=== PATIENT | female | born 1970 | race Caucasian/White ===

== ENCOUNTER 2017-02-11 14:37 | Inpatient (IN) | payer OTHER ==
[2017-02-11 15:51] VITALS: BMI 22.6
--- NOTE | 2017-02-11 17:39 | HP ---
CIWA Score - CIWA Score Nausea/Vomitin Muscle Tremors: 4-Moderate,w/Arms Extend Anxiety: 4-Mod. Anxious/Guarded Agitation: 4-Moderately Restless Paroxysmal Sweats: 3 Orientation: 0-Oriented Tacttile Disturbances: 0-None Auditory Disturbances: 0-None Visual Disturbances: 0-None Headache: 0-None Present CIWA-Ar Total Score: 17 Admission ROS BHS - HPI Chief Complaint: Withdrawal sx. Allergies/Adverse Reactions: Allergies Allergy/AdvReac Type Severity Reaction Status Date / Time No Known Allergies Allergy Verified 02/11/17 17:39 History of Present Illness: 46 y/o woman with a long hx. of drug and alcohol dependence is admitted for detox. Pt. has been in previous detox, denies significant sobriety. Exam Limitations: No Limitations - Ebola screening Have you traveled outside of the country in the last 21 days: No Have you had contact with anyone from an Ebola affected area: No Have you been sick,other than usual withdrawal symptoms: No Do you have a fever: No - Review of Systems Constitutional: Diaphoresis EENT: reports: No Symptoms Reported Respiratory: reports: Cough, Shortness of Breath (copd), Wheezing (copd) Cardiac: reports: No Symptoms Reported GI: reports: Nausea, Abdominal cramping : reports: No Symptoms Reported Musculoskeletal: reports: Back Pain, Joint Pain Integumentary: reports: Sweating Neuro: reports: Seizure (5 yrs. ago alcohol related), Tremors Endocrine: reports: No Symptoms Reported Hematology: reports: No Symptoms Reported Psychiatric: reports: No Sypmtoms Reported Other Systems: Reviewed and Negative Patient History - Patient Medical History Hx Anemia: No Hx Asthma: No Hx Chronic Obstructive Pulmonary Disease (COPD): Yes Hx Cancer: No Hx Cardiac Disorders: No Hx Congestive Heart Failure: No Hx Hypertension: No Hx Hypercholesterolemia: No Hx Pacemaker: No HX Cerebrovascular Accident: No Hx Seizures: Yes (5 yrs. ago) Hx Dementia: No Hx Diabetes: No Hx Gastrointestinal Disorders: Yes Hx Liver Disease: No Hx Genitourinary Disorders: No Hx Sexually Transmitted Disorders: Yes (Syphillis, treated) Hx Renal Disease (ESRD): No Hx Thyroid Disease: No Hx Human Immunodeficiency Virus (HIV): No Hx Hepatitis C: Yes (treated with Harvoni) Hx Depression: Yes Hx Suicide Attempt: No Hx Bipolar Disorder: No Hx Schizophrenia: No - Patient Surgical History Past Surgical History: No - PPD History Previous Implant?: Yes Documented Results: Negative w/o proof PPD to be Administered?: Yes - Reproductive History Patient is a Female of Child Bearing Age (11 -55 yrs old): Yes LMP comment: None since 2014 Patient : No - Smoking Cessation Smoking history: Current every day smoker Aproximately how many cigarettes per day: 20 Hx Chewing Tobacco Use: No Initiated information on smoking cessation: Yes 'Breaking Loose' booklet given: 02/11/17 - Substance & Tx. History Hx Alcohol Use: Yes Hx Substance Use: Yes Substance Use Type: Alcohol, Cocaine, Heroin Hx Substance Use Treatment: Yes (OTP) - Substances Abused Alcohol Route: Oral Frequency: Daily Amount used: Beer 1(6pack) Age of first use: 14 Date of Last Use: 02/11/17 Alprazolam (Xanax) Route: Oral Frequency: Daily Amount used: 6mg Age of first use: 32 Date of Last Use: 02/10/17 Crack Route: Smoking Frequency: Daily Amount used: $100.00 Age of first use: 18 Date of Last Use: 02/10/17 Family Disease History - Family Disease History Family Disease History: Diabetes: Grandparent, Heart Disease: Mother (HTN), Sister (HTN,Alcohol), Other: Father (Cocaine) Admission Physical Exam S - Vital Signs Vital Signs: Vital Signs - 24 hr 02/11/17 02/11/17 15:48 17:30 Temperature 96.1 F L 98.2 F Pulse Rate 78 63 Respiratory 20 18 Rate Blood Pressure 109/68 124/64 - Physical General Appearance: Yes: Tremorous, Irritable, Sweating, Anxious HEENTM: Yes: Within Normal Limits Respiratory: Yes: Chest Non-Tender, Wheezing (mild) Neck: Yes: Supple Breast: Yes: Breast Exam Deferred Cardiology: Yes: Regular Rhythm, Regular Rate, S1, S2 Abdominal: Yes: Normal Bowel Sounds, Non Tender, Soft Genitourinary: Yes: Within Normal Limits Back: Yes: Within Normal Limits Musculoskeletal: Yes: Within Normal Limits Extremities: Yes: Tremors Neurological: Yes: Fully Oriented, Alert Integumentary: Yes: Diaphoresis Lymphatic: Yes: Within Normal Limits - Diagnostic (1) Cocaine dependence, uncomplicated Current Visit: Yes Status: Acute (2) Opioid dependence on agonist therapy Current Visit: Yes Status: Acute (3) Sedative, hypnotic or anxiolytic dependence with withdrawal, uncomplicated Current Visit: Yes Status: Acute Cleared for Admission [facility] - Detox or Rehab [facility] Level of Care: Medically Managed Detox Regimen/Protocol: Librium [facility] Breath Alcohol Content Breath Alcohol Content: 0 Urine Pregancy Test - Result Urine Test Results: Positive - Line Present Urine Drug Screen - Results Drug Screen Negative: No Urine Drug Screen Results: HUMZA-Cocaine, OPI-Opiates, BZO-Benzodiazepines, MTD- Methadone, TCA-Tricyclic Antidepress
[2017-02-11] MEDS ORDERED: guaiFENesin/D-METHORPHAN HB 10 ML UNIT-DOSE CUPS PO PRN (17:51)
[2017-02-11] MEDS ORDERED: MAGNESIUM HYDROX 2400MG/30ML ORAL SUSPENSION 30 ML CUP PO PRN (17:51)
[2017-02-11] MEDS ORDERED: IBUPROFEN 400 MG TABLET (FP) PO PRN (17:51)
[2017-02-11] MEDS ORDERED: hydrOXYzine PAMOATE 50 MG CAPSULE (FP) PO PRN (17:51)
[2017-02-11] MEDS ORDERED: MAG HYDROX/AL HYDROX/SIMETH 30 ML UNIT-DOSE CUP PO PRN (17:51)
[2017-02-11] MEDS ORDERED: MAGNESIUM CITRATE 300 ML BOTTLE PO PRN (17:51)
[2017-02-11] MEDS ORDERED: chlordiazePOXIDE HCL 25 MG CAPSULE PO ONE (17:51)
[2017-02-11] MEDS ORDERED: P-EPHED 60MG/TRIPROLIDI 2.5MG TABLET PO PRN (17:51)
[2017-02-11] MEDS ORDERED: chlordiazePOXIDE HCL 25 MG CAPSULE PO PRN (17:51)
[2017-02-11] MEDS ORDERED: LOPERAMIDE HCL 2 MG CAPSULE PO PRN (17:51)
[2017-02-11] MEDS ORDERED: MENTHOL/PHENOL 1 EACH UD MM PRN (17:51)
[2017-02-11] MEDS ORDERED: ACETAMINOPHEN 325 MG TABLET (FP) PO PRN (17:51)
[2017-02-11] MEDS ORDERED: ALBUTEROL SO4 2.5/IPRATROPIUM 0.5 INH SOL 3 ML VIAL.NEB. NEB PRN (17:55)
[2017-02-11 20:18] LABS: URINE APPEARANCE CLOUDY; URINE BILIRUBIN NEGATIVE (NEGATIVE); URINE BLOOD NEGATIVE (NEGATIVE); URINE COLOR DKYELLOW; URINE GLUCOSE (UA) NEGATIVE (NEGATIVE); URINE KETONE NEGATIVE (NEGATIVE); URINE NITRITE NEGATIVE (NEGATIVE); URINE PROTEIN NEGATIVE (NEGATIVE); URINE UROBILINOGEN NEGATIVE mg/dL (0.2-1.0)
[2017-02-11] MEDS ORDERED: chlordiazePOXIDE HCL 25 MG CAPSULE ONE (20:42)
[2017-02-11] MEDS: BACITRACIN 0.9 GM PACKET TP SCH ×2 (20:44→22:49)
[2017-02-11] MEDS: ALBUTEROL SO4 2.5/IPRATROPIUM 0.5 INH SOL 3 ML VIAL.NEB. NEB SCH ×2 (20:47→23:00)
[2017-02-11] MEDS: NICOTINE POLACRILEX 2 MG GUM BC PRN ×2 (20:49→22:53)
[2017-02-11] MEDS: NICOTINE 21 MG/24 HOURS TOPICAL PATCH TD SCH (20:49)
[2017-02-11 22:21] LABS: URINE LEUK ESTERASE Negative (NEGATIVE)
[2017-02-11] MEDS: diphenhydrAMINE HCL 50 MG CAPSULE PO PRN (22:49)
[2017-02-11] MEDS: chlordiazePOXIDE HCL 25 MG CAPSULE PO SCH (22:49)
[2017-02-11] MEDS: THIAMINE HCL 100 MG TABLET (FP) PO SCH (23:00)
[2017-02-12] MEDS: chlordiazePOXIDE HCL 25 MG CAPSULE PO SCH ×4 (08:35→22:05)
[2017-02-12] MEDS: ALBUTEROL SO4 2.5/IPRATROPIUM 0.5 INH SOL 3 ML VIAL.NEB. NEB SCH ×4 (08:35→23:23)
[2017-02-12] MEDS: METHADONE HCL 10 MG TABLET PO SCH (09:12)
[2017-02-12] MEDS: NICOTINE POLACRILEX 2 MG GUM BC PRN ×4 (09:21→22:09)
[2017-02-12 10:25] LABS: MCH 28.9 pg (25.7-33.7); MCHC 33.2 g/dl (32.0-36.0); MEAN CELL VOLUME 86.9 fl (80-96); MEAN PLT VOLUME 8.7 fl (7.5-11.1); PLATELET COUNT 282 K/MM3 (134-434); RDW 13.8 % (11.6-15.6); WHITE BLOOD COUNT 6.2 K/mm3 (4.0-10.0)
[2017-02-12] MEDS: BACITRACIN 0.9 GM PACKET TP SCH ×4 (10:29→22:04)
[2017-02-12] MEDS: NICOTINE 21 MG/24 HOURS TOPICAL PATCH TD SCH (10:29)
[2017-02-12] MEDS: PRENATAL VITAMINS W/ FOLIC ACID TABLET (FP) PO SCH (10:29)
[2017-02-12 10:44] LABS: ALBUMIN 2.7 g/dl (3.4-5.0); ALK PHOS 76 U/L (45-117); ANION GAP 8 (8-16); BILIRUBIN,TOTAL 0.3 mg/dL (0.2-1.0); CALCIUM 8.8 mg/dL (8.5-10.1); CO2 28 mmol/L (21-32); CREATININE 0.5 mg/dL (0.55-1.02); GLUCOSE,RANDOM 81 mg/dL (74-106); SGOT/AST 14 U/L (15-37); SGPT/ALT 16 U/L (12-78); TOT PROT 6.7 g/dl (6.4-8.2)
[2017-02-12 10:59] LABS: HIV 1 & 2 AB NEGATIVE; HIV 1 AGp24 NEGATIVE
--- NOTE | 2017-02-12 11:44 | PN ---
S CIWA - CIWA Score Nausea/Vomitin Muscle Tremors: 3 Anxiety: 3 Agitation: 3 Paroxysmal Sweats: 1-Minimal Palms Moist Orientation: 0-Oriented Tacttile Disturbances: 1-Very Mild Itch/Numbness Auditory Disturbances: 1-Very Mild Visual Disturbances: 0-None Headache: 2-Mild CIWA-Ar Total Score: 17 BHS Progress Note (SOAP) Subjective: ALERT,IRRITABLE,ANXIOUS,INTERRUPTED SLEEP,TREMOR, Objective: 02/12/17 11:42 Vital Signs Temperature 97.2 F L 02/12/17 09:54 Pulse Rate 70 02/12/17 09:54 Respiratory Rate 18 02/12/17 09:54 Blood Pressure 131/65 02/12/17 09:54 O2 Sat by Pulse Oximetry (%) EKG SINUS BRADYCARDIA 59/MIN NO CHEST PAIN,NO SOB,NO DIZZINESS 02/12/17 11:43 Laboratory Last Values WBC 6.2 K/mm3 (4.0-10.0) 02/12/17 07:40 RBC 3.96 M/mm3 (3.60-5.2) 02/12/17 07:40 Hgb 11.4 GM/dL (10.7-15.3) 02/12/17 07:40 Hct 34.4 % (32.4-45.2) 02/12/17 07:40 MCV 86.9 fl (80-96) 02/12/17 07:40 MCH 28.9 pg (25.7-33.7) 02/12/17 07:40 MCHC 33.2 g/dl (32.0-36.0) 02/12/17 07:40 RDW 13.8 % (11.6-15.6) 02/12/17 07:40 Plt Count 282 K/MM3 (134-434) 02/12/17 07:40 MPV 8.7 fl (7.5-11.1) 02/12/17 07:40 Sodium 142 mmol/L (136-145) 02/12/17 07:40 Potassium 4.2 mmol/L (3.5-5.1) 02/12/17 07:40 Chloride 106 mmol/L (98-107) 02/12/17 07:40 Carbon Dioxide 28 mmol/L (21-32) 02/12/17 07:40 Anion Gap 8 (8-16) 02/12/17 07:40 BUN 11 mg/dL (7-18) 02/12/17 07:40 Creatinine 0.5 mg/dL (0.55-1.02) L 02/12/17 07:40 Creat Clearance w eGFR > 60 (>60) 02/12/17 07:40 Random Glucose 81 mg/dL (74-106) 02/12/17 07:40 Calcium 8.8 mg/dL (8.5-10.1) 02/12/17 07:40 Total Bilirubin 0.3 mg/dL (0.2-1.0) 02/12/17 07:40 AST 14 U/L (15-37) L 02/12/17 07:40 ALT 16 U/L (12-78) 02/12/17 07:40 Alkaline Phosphatase 76 U/L (45-117) 02/12/17 07:40 Total Protein 6.7 g/dl (6.4-8.2) 02/12/17 07:40 Albumin 2.7 g/dl (3.4-5.0) L 02/12/17 07:40 Urine Color Dkyellow 02/11/17 19:00 Urine Appearance Cloudy 02/11/17 19:00 Urine pH 5.0 (5.0-8.0) 02/11/17 19:00 Ur Specific [place] >= 1.030 (1.005-1.025) H 02/11/17 19:00 Urine Protein Negative (NEGATIVE) 02/11/17 19:00 Urine Glucose (UA) Negative (NEGATIVE) 02/11/17 19:00 Urine Ketones Negative (NEGATIVE) 02/11/17 19:00 Urine Blood Negative (NEGATIVE) 02/11/17 19:00 Urine Nitrite Negative (NEGATIVE) 02/11/17 19:00 Urine Bilirubin Negative (NEGATIVE) 02/11/17 19:00 Urine Urobilinogen Negative mg/dL (0.2-1.0) 02/11/17 19:00 Ur Leukocyte Esterase Negative (NEGATIVE) 02/11/17 19:00 RPR Titer Nonreactive (NONREACTIVE) 02/12/17 07:40 HIV 1&2 Antibody Screen Negative 02/12/17 07:40 HIV P24 Antigen Negative 02/12/17 07:40 Assessment: 02/12/17 11:44 WITHDRAWAL SYMPTOM Plan: CONTINUE DETOX
[2017-02-12] MEDS ORDERED: PNEUMOCOCCAL 23 VACCINE 0.5 ML VIAL IM ONE (12:00)
[2017-02-12] MEDS ORDERED: PNEUMOC 13-VAL CONJ-DIP CRM/PF 0.5 ML DISP.SYRIN IM ONE (12:00)
--- NOTE | 2017-02-12 15:12 | PN ---
BHS Progress Note Note: Patient did not want to be seen
--- NOTE | 2017-02-12 16:31 | EKG ---
Test Reason : Blood Pressure : / mmHG Vent. Rate : 054 BPM Atrial Rate : 054 BPM P-R Int : 156 ms QRS Dur : 082 ms QT Int : 426 ms P-R-T Axes : 062 049 033 degrees QTc Int : 403 ms SINUS BRADYCARDIA OTHERWISE NORMAL ECG NO PREVIOUS ECGS AVAILABLE Confirmed by SHERITA CLARK MD ([id number]) on 02/12/2017 4:31:16 PM Referred By: Confirmed By:SHERITA CLARK MD
[2017-02-12] MEDS: THIAMINE HCL 100 MG TABLET (FP) PO SCH (22:04)
[2017-02-13] MEDS: chlordiazePOXIDE HCL 25 MG CAPSULE PO SCH ×3 (05:37→17:58)
[2017-02-13] MEDS: METHADONE HCL 10 MG TABLET PO SCH (05:38)
[2017-02-13] MEDS: NICOTINE POLACRILEX 2 MG GUM BC PRN ×4 (05:42→22:09)
[2017-02-13] MEDS: ALBUTEROL SO4 2.5/IPRATROPIUM 0.5 INH SOL 3 ML VIAL.NEB. NEB SCH ×2 (06:45→12:30)
[2017-02-13] MEDS ORDERED: METHADONE HCL 40 MG DISPERSABLE TABLET PO SCH (09:15)
[2017-02-13] MEDS: PRENATAL VITAMINS W/ FOLIC ACID TABLET (FP) PO SCH (10:28)
[2017-02-13] MEDS: BACITRACIN 0.9 GM PACKET TP SCH ×4 (10:29→22:06)
[2017-02-13] MEDS: NICOTINE 21 MG/24 HOURS TOPICAL PATCH TD SCH (10:29)
--- NOTE | 2017-02-13 11:04 | PN ---
S CIWA - CIWA Score Nausea/Vomitin Muscle Tremors: 3 Anxiety: 3 Agitation: 3 Paroxysmal Sweats: 1-Minimal Palms Moist Orientation: 0-Oriented Tacttile Disturbances: 1-Very Mild Itch/Numbness Auditory Disturbances: 1-Very Mild Visual Disturbances: 0-None Headache: 2-Mild CIWA-Ar Total Score: 17 BHS Progress Note (SOAP) Subjective: ALERT,IRRITABLE,ANXIOUS,INTERRUPTED SLEEP,PAIN IN THE BODY AND BACK,MULTIPLE ULCERS BOTH FOREARMS WITH CELLULITIS Objective: 02/13/17 11:02 Vital Signs Temperature 98.2 F 02/13/17 09:42 Pulse Rate 62 02/13/17 09:42 Respiratory Rate 18 02/13/17 09:42 Blood Pressure 112/65 02/13/17 09:42 O2 Sat by Pulse Oximetry (%) Laboratory Last Values WBC 6.2 K/mm3 (4.0-10.0) 02/12/17 07:40 RBC 3.96 M/mm3 (3.60-5.2) 02/12/17 07:40 Hgb 11.4 GM/dL (10.7-15.3) 02/12/17 07:40 Hct 34.4 % (32.4-45.2) 02/12/17 07:40 MCV 86.9 fl (80-96) 02/12/17 07:40 MCH 28.9 pg (25.7-33.7) 02/12/17 07:40 MCHC 33.2 g/dl (32.0-36.0) 02/12/17 07:40 RDW 13.8 % (11.6-15.6) 02/12/17 07:40 Plt Count 282 K/MM3 (134-434) 02/12/17 07:40 MPV 8.7 fl (7.5-11.1) 02/12/17 07:40 Sodium 142 mmol/L (136-145) 02/12/17 07:40 Potassium 4.2 mmol/L (3.5-5.1) 02/12/17 07:40 Chloride 106 mmol/L (98-107) 02/12/17 07:40 Carbon Dioxide 28 mmol/L (21-32) 02/12/17 07:40 Anion Gap 8 (8-16) 02/12/17 07:40 BUN 11 mg/dL (7-18) 02/12/17 07:40 Creatinine 0.5 mg/dL (0.55-1.02) L 02/12/17 07:40 Creat Clearance w eGFR > 60 (>60) 02/12/17 07:40 Random Glucose 81 mg/dL (74-106) 02/12/17 07:40 Calcium 8.8 mg/dL (8.5-10.1) 02/12/17 07:40 Total Bilirubin 0.3 mg/dL (0.2-1.0) 02/12/17 07:40 AST 14 U/L (15-37) L 02/12/17 07:40 ALT 16 U/L (12-78) 02/12/17 07:40 Alkaline Phosphatase 76 U/L (45-117) 02/12/17 07:40 Total Protein 6.7 g/dl (6.4-8.2) 02/12/17 07:40 Albumin 2.7 g/dl (3.4-5.0) L 02/12/17 07:40 Urine Color Dkyellow 02/11/17 19:00 Urine Appearance Cloudy 02/11/17 19:00 Urine pH 5.0 (5.0-8.0) 02/11/17 19:00 Ur Specific [place] >= 1.030 (1.005-1.025) H 02/11/17 19:00 Urine Protein Negative (NEGATIVE) 02/11/17 19:00 Urine Glucose (UA) Negative (NEGATIVE) 02/11/17 19:00 Urine Ketones Negative (NEGATIVE) 02/11/17 19:00 Urine Blood Negative (NEGATIVE) 02/11/17 19:00 Urine Nitrite Negative (NEGATIVE) 02/11/17 19:00 Urine Bilirubin Negative (NEGATIVE) 02/11/17 19:00 Urine Urobilinogen Negative mg/dL (0.2-1.0) 02/11/17 19:00 Ur Leukocyte Esterase Negative (NEGATIVE) 02/11/17 19:00 RPR Titer Nonreactive (NONREACTIVE) 02/12/17 07:40 HIV 1&2 Antibody Screen Negative 02/12/17 07:40 HIV P24 Antigen Negative 02/12/17 07:40 Assessment: 02/13/17 11:03 WITHDRAWAL SYMPTOM Plan: CONTINUE DETOX,CLINDYMYCIN 300 MGS PO TID,SILVADENE CREAM
[2017-02-13] MEDS: SILVER SULFADIAZINE 1% TOP CREAM 50 GM JAR TP SCH ×2 (12:31→22:09)
--- NOTE | 2017-02-13 13:57 | CONSULT ---
[facility] Psychiatric Consult - Data Date of interview: 02/13/17 Admission source: [facility] Identifying data: First admission to [facility] for this 46 y/o female seeking detox treatment on for heroin,cocaine,alcohol and xanax dependence.Patient is single without children,domiciled (lives with her mother), unemployed and currently supported on unemployment benefits. Substance Abuse History: Discussed in this interview.Patient confirmed this report. Smoking Cessation. Smoking history: Current every day smoker. Aproximately how many cigarettes per day: 20. Hx Chewing Tobacco Use: No. Initiated information on smoking cessation: Yes. 'Breaking Loose' booklet given : 02/11/17. - Substance & Tx. History. Hx Alcohol Use: Yes. Hx Substance Use : Yes. Substance Use Type: Alcohol, Cocaine, Heroin. Hx Substance Use Treatment: Yes (OTP). - Substances Abused. Alcohol. Route: Oral. Frequency: Daily. Amount used: Beer 1(6pack). Age of first use: 14. Date of Last Use: 02/11/17. Alprazolam (Xanax). Route: Oral. Frequency: Daily. Amount used: 6mg. Age of first use: 32. Date of Last Use: 02/10/17. Crack. Route: Smoking. Frequency: Daily. Amount used: $100.00. Age of first use: 18. Date of Last Use: 02/10/17 Medical History: History of seizures (withdrawal-related),hepatitis C (treated), past treatment for syphilis and skin lesions (needle tracks). Psychiatric History: No reported history of psychiatric hospitalizations.Patient endorses Anxiety Disorder.Brief OPD care months ago.Was prescribed neurontin by a primary care practitioner.Ms Sheriff shows no motivation for treatment of lifestyle changes.Denies history of suicide attempts. Physical/Sexual Abuse/Trauma History: Patient denies history of abuse. Additional Comment: Urine Drug Screen Results: HUMZA-Cocaine, OPI-Opiates, BZO- Benzodiazepines, MTD-Methadone, TCA-Tricyclic Antidepressant.Noted. Mental Status Exam - Mental Status Exam Alert and Oriented to: Time, Place, Person Cognitive Function: Good Patient Appearance: Unkempt, Disheveled (arms and forearms covered with excoriations,healed abcesses and needle swanson) Mood: Nervous, Withdrawn Affect: Mood Congruent Patient Behavior: Fatigued, Appropriate, Cooperative Speech Pattern: Clear, Appropriate Voice Loudness: Normal Thought Process: Intact, Goal Oriented Thought Disorder: Not Present Hallucinations: Denies Suicidal Ideation: Denies Homicidal Ideation: Denies Insight/Judgement: Poor Sleep: Well Appetite: Good Muscle strength/Tone: Normal Gait/Station: Normal Psychiatric Findings - Problem List ([place] 1, 2,3) (1) Alcohol dependence Current Visit: Yes Status: Acute (2) Sedative, hypnotic or anxiolytic dependence with withdrawal, uncomplicated Current Visit: Yes Status: Acute (3) Cocaine dependence, uncomplicated Current Visit: Yes Status: Acute (4) Opioid dependence on agonist therapy Current Visit: Yes Status: Acute (5) Nicotine dependence Current Visit: Yes Status: Acute (6) Substance induced mood disorder Current Visit: Yes Status: Acute - Initial Treatment Plan Initial Treatment Plan: Psychoeducation.Detoxification.Patient declines any psychotropics other than medications for detoxification purposes.Observation.
[2017-02-13] MEDS: CLINDAMYCIN HCL 150 MG CAPSULE (FP) PO SCH ×2 (14:31→22:06)
[2017-02-13] MEDS: chlordiazePOXIDE 5 MG CAPSULE PO SCH (22:06)
[2017-02-13] MEDS: THIAMINE HCL 100 MG TABLET (FP) PO SCH (22:06)
[2017-02-14] MEDS: ALBUTEROL SO4 2.5/IPRATROPIUM 0.5 INH SOL 3 ML VIAL.NEB. NEB SCH ×3 (00:30→13:00)
[2017-02-14] MEDS: NICOTINE POLACRILEX 2 MG GUM BC PRN ×5 (02:24→22:14)
[2017-02-14] MEDS: chlordiazePOXIDE 5 MG CAPSULE PO SCH ×3 (05:04→17:54)
[2017-02-14] MEDS: METHADONE HCL 40 MG DISPERSABLE TABLET PO SCH (05:04)
[2017-02-14] MEDS: CLINDAMYCIN HCL 150 MG CAPSULE (FP) PO SCH ×3 (05:05→22:02)
--- NOTE | 2017-02-14 09:46 | PN ---
BHS Progress Note (SOAP) Subjective: ALERT,IRRITABLE,ANXIOUS,INTERRUPTED SLEEP Objective: 02/14/17 09:44 Vital Signs Temperature 97.7 F 02/14/17 06:09 Pulse Rate 66 02/14/17 06:09 Respiratory Rate 18 02/14/17 06:09 Blood Pressure 147/74 02/14/17 06:09 O2 Sat by Pulse Oximetry (%) 02/14/17 09:45 Assessment: 02/14/17 09:45 WITHDRAWAL SYMPTOM Plan: CONTINUE DETOX,DISCHARGE IN AM
[2017-02-14] MEDS: BACITRACIN 0.9 GM PACKET TP SCH ×4 (10:09→22:02)
[2017-02-14] MEDS: PRENATAL VITAMINS W/ FOLIC ACID TABLET (FP) PO SCH (10:09)
[2017-02-14] MEDS: SILVER SULFADIAZINE 1% TOP CREAM 50 GM JAR TP SCH ×2 (10:10→22:10)
[2017-02-14] MEDS: NICOTINE 21 MG/24 HOURS TOPICAL PATCH TD SCH (10:10)
[2017-02-14] MEDS: chlordiazePOXIDE HCL 10 MG CAPSULE PO SCH (22:02)
[2017-02-14] MEDS: THIAMINE HCL 100 MG TABLET (FP) PO SCH (22:03)
[2017-02-14] MEDS: diphenhydrAMINE HCL 50 MG CAPSULE PO PRN (22:10)
[2017-02-15] MEDS: METHADONE HCL 40 MG DISPERSABLE TABLET PO SCH (05:11)
[2017-02-15] MEDS: chlordiazePOXIDE HCL 10 MG CAPSULE PO SCH (05:11)
[2017-02-15] MEDS: CLINDAMYCIN HCL 150 MG CAPSULE (FP) PO SCH (05:11)
[2017-02-15] MEDS: NICOTINE POLACRILEX 2 MG GUM BC PRN ×2 (05:14→09:36)
--- NOTE | 2017-02-15 08:23 | DS ---
[facility] Detox Discharge Summary Admission Date: 02/11/17 Discharge Date: 02/15/17 - History Present History: Cocaine Dependence, Sedative Dependence, MMTP Additional Comments: follow up with after care program as arrangement Pertinent Past History: nicotine dependence mmtp - Physical Exam Results Vital Signs: Vital Signs Temperature 96.8 F L 02/15/17 06:17 Pulse Rate 58 L 02/15/17 06:17 Respiratory Rate 16 02/15/17 06:17 Blood Pressure 98/63 02/15/17 06:17 O2 Sat by Pulse Oximetry (%) Pertinent Admission Physical Exam Findings: withdrawal symptom - Treatment Hospital Course: Detox Protocol Followed, Detoxed Safely, Responded well, Discharged Condition Good Patient has Accepted a Rehab Referral to: declined - Medication Discharge Medications: Ambulatory Orders Gabapentin [Neurontin -] 300 mg PO Q8H 02/11/17 - Diagnosis (1) Sedative, hypnotic or anxiolytic dependence with withdrawal, uncomplicated Current Visit: Yes Status: Acute (2) Cocaine dependence, uncomplicated Current Visit: Yes Status: Acute (3) Nicotine dependence Current Visit: Yes Status: Acute (4) Opioid dependence on agonist therapy Current Visit: Yes Status: Acute (5) Substance induced mood disorder Current Visit: Yes Status: Acute - AMA Did Patient Leave Against Medical Advice: No
[2017-02-15 10:45] VITALS: BP 134/90; PULSE 109; TEMP 97.7
== END 2017-02-15 10:00 | disposition home or self-care (01) | DRG 773 ==
LOC: YASAS 14:37 → Y6N 16:55
PROVIDERS: ADMIT Internal Medicine; ATTEND Internal Medicine
PROC: HZ2ZZZZ Detoxification Services for Substance Abuse Treatment (ICD-10-PCS; principal; 2017-02-11)
DX: F10.230 Alcohol dependence with withdrawal, uncomplicated (principal); F11.20 Opioid dependence, uncomplicated; F13.230 Sedative, hypnotic or anxiolytic dependence with withdrawal, uncomplicated; F14.20 Cocaine dependence, uncomplicated; F17.210 Nicotine dependence, cigarettes, uncomplicated; F19.24 Other psychoactive substance dependence with psychoactive substance-induced mood disorder; R00.1 Bradycardia, unspecified; J44.9 Chronic obstructive pulmonary disease, unspecified; B18.2 Chronic viral hepatitis C; Z86.69 Personal history of other diseases of the nervous system and sense organs; Z87.42 Personal history of other diseases of the female genital tract
CPT/HCPCS: 36415; 80053; 81003; 85027; 86593; 87389; 93005; 93010; 94640

== ENCOUNTER 2018-03-01 10:56 | Inpatient (IN) | payer OTHER ==
[2018-03-01 12:21] VITALS: BMI 19.5
--- NOTE | 2018-03-01 12:46 | HP ---
Admission [facility] Allergies/Adverse Reactions: Allergies Allergy/AdvReac Type Severity Reaction Status Date / Time No Known Allergies Allergy Verified 03/01/18 13:45 - Ebola screening Have you traveled outside of the country in the last 21 days: No Have you had contact with anyone from an Ebola affected area: No Have you been sick,other than usual withdrawal symptoms: No Patient History - Patient Medical History Hx Anemia: No Hx Asthma: No Hx Chronic Obstructive Pulmonary Disease (COPD): Yes Hx Cancer: No Hx Cardiac Disorders: No Hx Congestive Heart Failure: No Hx Hypertension: No Hx Hypercholesterolemia: No Hx Pacemaker: No HX Cerebrovascular Accident: No Hx Seizures: Yes (Drug-related 5 yrs ago) Hx Dementia: No Hx Diabetes: No Hx Gastrointestinal Disorders: No Hx Liver Disease: No Hx Genitourinary Disorders: No Hx Sexually Transmitted Disorders: Yes (Syphilis- treatd) Hx Renal Disease (ESRD): No Hx Thyroid Disease: No Hx Human Immunodeficiency Virus (HIV): No Hx Hepatitis C: Yes (treated with Harvoni) Hx Depression: Yes Hx Suicide Attempt: No Hx Bipolar Disorder: No Hx Schizophrenia: No - Patient Surgical History Past Surgical History: No Hx Neurologic Surgery: No Hx Cataract Extraction: No Hx Cardiac Surgery: No Hx Lung Surgery: No Hx Breast Surgery: No Hx Breast Biopsy: No Hx Abdominal Surgery: No Hx Appendectomy: No Hx Cholecystectomy: No Hx Genitourinary Surgery: No Hx Section: No Hx Orthopedic Surgery: No Anesthesia Reaction: No - PPD History Date: 02/13/17 - Smoking Cessation Smoking history: Current every day smoker Aproximately how many cigarettes per day: 20 Hx Chewing Tobacco Use: No Initiated information on smoking cessation: Yes 'Breaking Loose' booklet given: 03/01/18 - Substances Abused Heroin Route: Injection Frequency: Daily Amount used: 1-2 BUNDLE Age of first use: 27 Date of Last Use: 03/01/18 Alprazolam (Xanax) Route: Oral Frequency: Daily Amount used: 3/2MG Age of first use: 34 Date of Last Use: 03/01/18 Cocaine Route: Smoking Frequency: Daily Amount used: $50 Age of first use: 19 Date of Last Use: 03/01/18 Alcohol Route: Oral Frequency: Daily Amount used: 1 x six pack beer + 1 pint liquor Age of first use: 15 Date of Last Use: 03/01/18 Family Disease History - Family Disease History Family Disease History: Diabetes: Grandparent, Heart Disease: Mother (HTN), Sister (HTN,Alcohol), Other: Father (Cocaine) Admission Physical Exam [facility] - Vital Signs Vital Signs: Vital Signs - 24 hr 03/01/18 12:11 Temperature 99.3 F Pulse Rate 89 Respiratory 17 Rate Blood Pressure 114/67 Screened but not Admitted - Documentation of Visit Screened but not Admitted: Yes Level of Care Recommended at this Time: ER Evaluation/Care Additional Information/Explanation: this 47 yars old female with heorin,xanax, cociane dependence,. seen in [facility] evaluation unit ,history of trauma to right orbit 2 days ago,. unable to open right eye,ecchymsis of right eye,r/o fx floor of orbit right. bp 114/67,p89,r17,t99.3,stephanie is 0.00. patient to be evaluated at [facility] er and medical clearance,. endorsed to Lala Scanlon RN in charge of er who will endorse case to Dr.Joel Nicole. patient to be transported by [facility] Breath Alcohol Content Breath Alcohol Content: 0 Urine Pregancy Test - Result Urine Test Results: Negative- NO Line Present Urine Drug Screen - Results Drug Screen Negative: No Urine Drug Screen Results: THC-Marijuana, HUMZA-Cocaine, OPI-Opiates, BZO- Benzodiazepines, OXY-Oxycodone, FEN-Fentanyl
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
[2018-03-01] MEDS ORDERED: chlordiazePOXIDE HCL 25 MG CAPSULE PO ONE (19:50)
[2018-03-01] MEDS ORDERED: MAG HYDROX/AL HYDROX/SIMETH 30 ML UNIT-DOSE CUP PO PRN (19:50)
[2018-03-01] MEDS ORDERED: MAGNESIUM CITRATE 300 ML BOTTLE PO PRN (19:50)
[2018-03-01] MEDS ORDERED: LOPERAMIDE HCL 2 MG CAPSULE PO PRN (19:50)
[2018-03-01] MEDS ORDERED: METHADONE HCL 10 MG TABLET (FOR DETOX USE ONLY) PO ONE ×2 (19:50→23:00)
[2018-03-01] MEDS ORDERED: ACETAMINOPHEN 325 MG TABLET (FP) PO PRN (19:50)
[2018-03-01] MEDS ORDERED: MENTHOL/PHENOL 1 EACH UD MM PRN (19:50)
[2018-03-01] MEDS ORDERED: P-EPHED 60MG/TRIPROLIDI 2.5MG TABLET PO PRN (19:50)
[2018-03-01] MEDS ORDERED: guaiFENesin/D-METHORPHAN HB 10 ML UNIT-DOSE CUPS PO PRN (19:50)
[2018-03-01] MEDS ORDERED: IBUPROFEN 400 MG TABLET (FP) PO PRN (19:50)
[2018-03-01] MEDS ORDERED: MAGNESIUM HYDROX 2400MG/30ML ORAL SUSPENSION 30 ML CUP PO PRN (19:50)
[2018-03-01] MEDS: THIAMINE HCL 100 MG TABLET (FP) PO SCH (21:42)
[2018-03-01] MEDS: AMOX TR/POT CLAV 875MG/125MG TABLETS (FP) PO SCH (21:42)
[2018-03-01] MEDS: NICOTINE POLACRILEX 4 MG GUM BC PRN (21:49)
[2018-03-01] MEDS ORDERED: MELATONIN 5 MG TABLETS PO PRN (22:00)
[2018-03-01] MEDS: chlordiazePOXIDE HCL 25 MG CAPSULE PO SCH (22:02)
[2018-03-01 23:15] LABS: URINE APPEARANCE SLCLOUDY; URINE BILIRUBIN NEGATIVE (<2.0 mg/dL); URINE COLOR YELLOW; URINE GLUCOSE (UA) NEGATIVE (NEGATIVE); URINE KETONE NEGATIVE (NEGATIVE); URINE LEUK ESTERASE NEGATIVE (NEGATIVE); URINE NITRITE NEGATIVE (NEGATIVE); URINE PROTEIN NEGATIVE (NEGATIVE); URINE UROBILINOGEN NEGATIVE mg/dL (0.2-1.0)
[2018-03-02] MEDS ORDERED: cloNIDine HCL 0.1 MG TABLET PO ONE (06:43)
--- NOTE | 2018-03-02 06:50 | PN ---
[facility] Progress Note Note: pATIENT'S BLOOD PRESSURE IS B/P 150/98 Vital Signs Temperature 96.3 F L 03/02/18 06:00 Pulse Rate 59 L 03/02/18 06:00 Respiratory Rate 20 03/02/18 06:00 Blood Pressure 150/98 03/02/18 06:00 O2 Sat by Pulse Oximetry (%) Action: Clonidine 0.1mg tablet oral ordered
[2018-03-02] MEDS: chlordiazePOXIDE HCL 25 MG CAPSULE PO SCH ×4 (07:14→22:34)
--- NOTE | 2018-03-02 09:42 | EKG ---
Test Reason : Blood Pressure : / mmHG Vent. Rate : 066 BPM Atrial Rate : 066 BPM P-R Int : 152 ms QRS Dur : 088 ms QT Int : 394 ms P-R-T Axes : 060 048 051 degrees QTc Int : 413 ms NORMAL SINUS RHYTHM NORMAL ECG WHEN COMPARED WITH ECG OF 11-FEB-2017 18:30, NO SIGNIFICANT CHANGE WAS FOUND Confirmed by LIAM HERNANDEZ MD ([id number]) on 03/02/2018 9:42:26 AM Referred By: Confirmed By:LIAM HERNANDEZ MD
[2018-03-02] MEDS ORDERED: METHADONE HCL 10 MG TABLET (FOR DETOX USE ONLY) PO SCH (10:00)
[2018-03-02] MEDS: PRENATAL VITAMINS W/ FOLIC ACID TABLET (FP) PO SCH (10:18)
[2018-03-02] MEDS: AMOX TR/POT CLAV 875MG/125MG TABLETS (FP) PO SCH ×2 (10:18→22:33)
[2018-03-02] MEDS: NICOTINE 21 MG/24 HOURS TOPICAL PATCH TD SCH (10:19)
--- NOTE | 2018-03-02 11:32 | PN ---
[facility] CIWA - CIWA Score Nausea/Vomitin-No Nausea/No Vomiting Muscle Tremors: 4-Moderate,w/Arms Extend Anxiety: 3 Agitation: 4-Moderately Restless Paroxysmal Sweats: 3 Orientation: 0-Oriented Tacttile Disturbances: 0-None Auditory Disturbances: 0-None Visual Disturbances: 0-None Headache: 0-None Present CIWA-Ar Total Score: 14 BHS COWS - Scale Resting Pulse: 0= PA 80 or Below Sweatin= Chills/Flushing Restless Observation: 1= Difficult to Sit Still Pupil Size: 0= Normal to Room Light Bone or Joint Aches: 2= Severe Diffuse Aches Runny Nose/ Eye Tearin= Runny Nose/Eyes GI Upset > 30mins: 0= None Tremor Observation of Outstretched Hands: 2= Slight Tremor Visible Yawning Observation: 2= >3x During Session Anxiety or Irritability: 2=Irritable/Anxious Goose Flesh Skin: 3=Piloerection COWS Score: 15 S Progress Note (SOAP) Subjective: tired body aches sweats agitation chills shakes Objective: 03/02/18 11:31 Vital Signs Temperature 97.0 F L 03/02/18 09:49 Pulse Rate 61 03/02/18 09:49 Respiratory Rate 16 03/02/18 09:49 Blood Pressure 146/89 03/02/18 09:49 O2 Sat by Pulse Oximetry (%) Laboratory Tests 03/01/18 21:04 Urine Color Yellow Urine Appearance Slcloudy Urine pH 5.0 Ur Specific [place] 1.020 Urine Protein Negative Urine Glucose (UA) Negative Urine Ketones Negative Urine Blood Negative Urine Nitrite Negative Urine Bilirubin Negative Urine Urobilinogen Negative Ur Leukocyte Esterase Negative pt was at [facility] and labs were drawn there. labs are accessed and are WNL [id number] lying in bed no acute distress Assessment: 03/02/18 11:32 withdrawal sx black/blue matt-orbital noted to right eye. Plan: continue detox increase fluids pt denies of any eye pain at this time. will continue to monitor.
[2018-03-02] MEDS: chlordiazePOXIDE HCL 25 MG CAPSULE PO PRN (15:17)
[2018-03-02] MEDS: NICOTINE POLACRILEX 4 MG GUM BC PRN ×3 (16:58→22:38)
--- NOTE | 2018-03-02 17:39 | CONSULT ---
[facility] Psychiatric Consult - Data Date of interview: 03/02/18 Admission source: [facility] Identifying data: Patient is a 47 year old single female, without children, unemployed, and currently residing with mother. This is one of multiple admissions for patient. Patient admitted to for alcohol, cocaine, opiate, and benzodizaepine dependence. Substance Abuse History: Smoking Cessation. Smoking history: Current every day smoker. Aproximately how many cigarettes per day: 30. Hx Chewing Tobacco Use: No. Initiated information on smoking cessation: Yes. 'Breaking Loose' booklet given: 03/01/18. - Substance & Tx. History. Hx Alcohol Use: Yes. Hx Substance Use: No. Substance Use Type: Alcohol, Cocaine, Heroin, Tranquilizers. Hx Substance Use Treatment: Yes (Last detox [facility] six months ago. ). - Substances Abused. Heroin. Route: Injection. Frequency: Daily. Amount used: 1-2 BUNDLE. Age of first use: 27. Date of Last Use: 03/01. Alprazolam (Xanax). Route: Oral. Frequency: Daily. Amount used: 3/ 2MG. Age of first use: 34. Date of Last Use: 03/01/18. Cocaine. Route: Smoking. Frequency: Daily. Amount used: $50. Age of first use: 19. Date of Last Use: 03/01/18. Alcohol. Route: Oral. Frequency: Daily. Amount used: 1 x six pack beer + 1 pint liquor. Age of first use: 15. Date of Last Use: Medical History: COPD, Seizures Psychiatric History: Patient denies h/o psychiatric hospitalization. Most recent outpatient psychiatric care was provided 2 years ago in which she reports being ambien and gabapentin. Patient states she was recently at [facility] detox 2 months ago and was prescribed gabapentin 300mg TID + ambien 10mg for insomnia. Patient denies h/o suicide attempt. Patient is currently c/o anxiety and difficulty sleeping. Physical/Sexual Abuse/Trauma History: denies. Mental Status Exam - Mental Status Exam Alert and Oriented to: Time, Place, Person Cognitive Function: Good Patient Appearance: Well Groomed Mood: Euthymic Affect: Mood Congruent Patient Behavior: Cooperative Speech Pattern: Appropriate Voice Loudness: Normal Thought Process: Intact, Goal Oriented Thought Disorder: Not Present Hallucinations: Denies Suicidal Ideation: Denies Homicidal Ideation: Denies Insight/Judgement: Poor Sleep: Poorly Appetite: Fair Muscle strength/Tone: Normal Gait/Station: Normal Psychiatric Findings - Problem List ([place] 1, 2,3) (1) Cocaine dependence, uncomplicated Current Visit: Yes Status: Chronic (2) Opioid dependence with withdrawal Current Visit: Yes Status: Acute (3) Alcohol dependence with uncomplicated withdrawal Current Visit: Yes Status: Acute (4) Substance induced mood disorder Current Visit: Yes Status: Acute (5) Substance-induced sleep disorder Current Visit: Yes Status: Acute (6) Sedative hypnotic or anxiolytic dependence Current Visit: Yes Status: Acute - Initial Treatment Plan Initial Treatment Plan: Psychoeducation provided. Detoxification in progress. Will order vistaril 50mg q4h and ambien 10mg qhs. Benefits and side effects discussed. Patient made aware of the risk of parasomnia when acceptng ambien. She reports favorable effects from accepting ambien. Verbal consent given.
[2018-03-02] MEDS ORDERED: ZOLPIDEM TARTRATE 10 MG TABLET (PARK CARE ONLY) PO PRN (18:07)
[2018-03-02] MEDS: hydrOXYzine PAMOATE 50 MG CAPSULE (FP) PO PRN (20:34)
[2018-03-02] MEDS: THIAMINE HCL 100 MG TABLET (FP) PO SCH (22:33)
[2018-03-03] MEDS: chlordiazePOXIDE HCL 25 MG CAPSULE PO PRN ×2 (01:54→14:14)
[2018-03-03] MEDS: hydrOXYzine PAMOATE 50 MG CAPSULE (FP) PO PRN (01:54)
[2018-03-03] MEDS: chlordiazePOXIDE HCL 25 MG CAPSULE PO SCH ×3 (05:32→17:09)
[2018-03-03] MEDS: NICOTINE POLACRILEX 4 MG GUM BC PRN ×3 (05:33→14:15)
[2018-03-03] MEDS ORDERED: METHADONE HCL 5 MG TABLET (FOR DETOX USE ONLY) PO SCH (10:00)
[2018-03-03] MEDS: AMOX TR/POT CLAV 875MG/125MG TABLETS (FP) PO SCH (10:13)
[2018-03-03] MEDS: PRENATAL VITAMINS W/ FOLIC ACID TABLET (FP) PO SCH (10:13)
[2018-03-03] MEDS: NICOTINE 21 MG/24 HOURS TOPICAL PATCH TD SCH (10:15)
[2018-03-03 14:12] VITALS: PULSE 80
--- NOTE | 2018-03-03 15:27 | PN ---
[facility] Progress Note Note: Psychiatric nurse practitioner note: Patient reports difficulty sleeping despite accepting ambien 10mg. Patient reports favorable effects from previously accepting seroquel at other detox/ rehab facilities. Will order Seroquel 50mg qhs. Benefits and side effects discussed. Verbal consent given.
--- NOTE | 2018-03-03 17:03 | PN ---
[facility] CIWA - CIWA Score Nausea/Vomitin-No Nausea/No Vomiting Muscle Tremors: 4-Moderate,w/Arms Extend Anxiety: 1-Mildly Anxious Agitation: 4-Moderately Restless Paroxysmal Sweats: No Perspiration Orientation: 0-Oriented Tacttile Disturbances: 0-None Auditory Disturbances: 0-None Visual Disturbances: 0-None Headache: 0-None Present CIWA-Ar Total Score: 9 [facility] COWS - Scale Resting Pulse: 1= NH 81-100 Sweatin= No chills or Flushing Restless Observation: 1= Difficult to Sit Still Pupil Size: 0= Normal to Room Light Bone or Joint Aches: 1= Mild Discomfort Runny Nose/ Eye Tearin= None GI Upset > 30mins: 0= None Tremor Observation of Outstretched Hands: 2= Slight Tremor Visible Yawning Observation: 0= None Anxiety or Irritability: 2=Irritable/Anxious Goose Flesh Skin: 0=Smooth Skin COWS Score: 7 S Progress Note (SOAP) Subjective: C/o feeling shaky, anxious, w/ body aches. States (R) eye still hurts. Denies visual changes. Objective: A&O x 3. (R) eye w/ surrounding periorbital ecchimosis. PERRL. No eye discharge. (+) tremors of hands. pacing the halls. Vital Signs 03/03/18 14:12 Temperature 97.5 F L Pulse Rate 80 Respiratory 16 Rate Blood Pressure 109/70 Laboratory Last Values Urine Color Yellow 03/01/18 21:04 Urine Appearance Slcloudy 03/01/18 21:04 Urine pH 5.0 (5.0-8.0) 03/01/18 21:04 Ur Specific [place] 1.020 (1.010-1.035) 03/01/18 21:04 Urine Protein Negative (NEGATIVE) 03/01/18 21:04 Urine Glucose (UA) Negative (NEGATIVE) 03/01/18 21:04 Urine Ketones Negative (NEGATIVE) 03/01/18 21:04 Urine Blood Negative (NEGATIVE) 03/01/18 21:04 Urine Nitrite Negative (NEGATIVE) 03/01/18 21:04 Urine Bilirubin Negative (<2.0 mg/dL) 03/01/18 21:04 Urine Urobilinogen Negative mg/dL (0.2-1.0) 03/01/18 21:04 Ur Leukocyte Esterase Negative (NEGATIVE) 03/01/18 21:04 Labs reviewed. Assessment: Withdrawal symptoms. s/p (R) eye trauma Plan: Discussed possibility of joining a methadone program. Continue detox.
[2018-03-03 17:46] VITALS: BP 123/79; TEMP 97.3
[2018-03-03] MEDS ORDERED: CYCLOBENZAPRINE HCL 10 MG TABLET (FP) PO PRN (19:35)
--- NOTE | 2018-03-03 19:44 | PN ---
[facility] Progress Note Note: patient did not want to complete treatment,seen by counselor,all attempts to convince patient to stay by nurse and counselors with no avail, patient did not want to wait,has fx of orbit right,advise to see her pmd and embedded firmware engineer for evaluation and treatment, to er if any emergency medical problem,prescription of augmentin 875 mgs po bid for 10 dyas sent to [facility] pharmacy
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
[2018-03-03] MEDS ORDERED: QUEtiapine FUMARATE 50 MG TABLET PO SCH (22:00)
[2018-03-03] MEDS ORDERED: cloNIDine HCL 0.1 MG TABLET PO SCH (22:00)
[2018-03-03] MEDS ORDERED: chlordiazePOXIDE 5 MG CAPSULE PO SCH (23:00)
[2018-03-04] MEDS ORDERED: chlordiazePOXIDE HCL 10 MG CAPSULE PO SCH (23:00)
[2018-03-05] MEDS ORDERED: METHADONE HCL 10 MG TABLET (FOR DETOX USE ONLY) PO SCH (10:00)
[2018-03-06] MEDS ORDERED: METHADONE HCL 5 MG TABLET (FOR DETOX USE ONLY) PO SCH (06:00)
== END 2018-03-03 19:54 | disposition left against medical advice (07) | DRG 770 ==
LOC: YASAS 10:56 → Y6N 19:53
PROC: HZ2ZZZZ Detoxification Services for Substance Abuse Treatment (ICD-10-PCS; principal; 2018-03-01)
DX: F11.23 Opioid dependence with withdrawal (principal); F10.230 Alcohol dependence with withdrawal, uncomplicated; F13.230 Sedative, hypnotic or anxiolytic dependence with withdrawal, uncomplicated; F14.20 Cocaine dependence, uncomplicated; F17.210 Nicotine dependence, cigarettes, uncomplicated; F19.24 Other psychoactive substance dependence with psychoactive substance-induced mood disorder; F19.282 Other psychoactive substance dependence with psychoactive substance-induced sleep disorder; F32.9 Major depressive disorder, single episode, unspecified; J44.9 Chronic obstructive pulmonary disease, unspecified; Z86.69 Personal history of other diseases of the nervous system and sense organs; Z86.19 Personal history of other infectious and parasitic diseases; S02.80XD Fracture of other specified skull and facial bones, unspecified side, subsequent encounter for fracture with routine healing; Y04.2XXD Assault by strike against or bumped into by another person, subsequent encounter
CPT/HCPCS: 81003; 93005; 93010; J0735

== ENCOUNTER 2018-03-01 13:32 | Emergency (ER) | payer OTHER ==
[2018-03-01 13:44] VITALS: TEMP 98.6; BMI 19.8
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
[2018-03-01] MEDS ORDERED: ACETAMINOPHEN 325 MG TABLET (FP) PO ONE (16:28)
[2018-03-01] MEDS ORDERED: ACETAMINOPHEN 325 MG TABLET (FP) ONE ×2 (16:31→16:32)
[2018-03-01 17:48] VITALS: BP 109/61; PULSE 86
== END 2018-03-01 17:55 | disposition short-term general hospital (02) ==
LOC: JERFT 13:32
DX: S02.80XA Fracture of other specified skull and facial bones, unspecified side, initial encounter for closed fracture (principal); S00.11XA Contusion of right eyelid and periocular area, initial encounter; Y04.2XXA Assault by strike against or bumped into by another person, initial encounter; Y93.89 Activity, other specified; Y92.89 Other specified places as the place of occurrence of the external cause; Y99.8 Other external cause status; Y07.9 Unspecified perpetrator of maltreatment and neglect; F11.10 Opioid abuse, uncomplicated; F10.10 Alcohol abuse, uncomplicated; F13.10 Sedative, hypnotic or anxiolytic abuse, uncomplicated; F17.210 Nicotine dependence, cigarettes, uncomplicated
CPT/HCPCS: 70480-TC; 84703; 99281-25